=== PATIENT | male | born 1945 | race Hispanic/Latino ===

== ENCOUNTER 2017-10-22 20:48 | Emergency (ER) | payer MEDICARE, OTHER ==
[2017-10-22] MEDS ORDERED: ADRENALIN ONE (21:04)
[2017-10-22] MEDS ORDERED: SODIUM BICARBONATE IV ONE (21:04)
--- NOTE | 2017-10-22 21:15 | Emergency Department Report ---
ED CPR HPI - General Stated Complaint: CARDIAC ARREST Time Seen by Provider: 10/22/17 20:48 Source: EMS Mode of arrival: Stretcher Limitations: Altered Mental Status, Physical Limitation - History of Present Illness MD Complaint: found unresponsive -: unknown Place: home Bystander CPR Performed: No AED Applied by Bystander/Fur Coat Sewer: No Shock Advised: No Initial Findings in the Field: unresponsive, no respirations, no pulse, VTACH/ VFIB ROSC in the Field: No Associated Injuries: No Treatments Prior to Arrival: intubation, defribrillated shocks #, epinephrine mgs #, amiodarone ED Review of Systems ROS: Stated complaint: CARDIAC ARREST Other details as noted in HPI Comment: Unobtainable due to pts medical conditions ED Past Medical Hx - Past Medical History Previous Medical History?: No - Surgical History Past Surgical History?: No - Family History Family history: no significant - Social History Smoking Status: Unknown if ever smoked Substance Use Type: Other ED Physical Exam - General Limitations: Altered Mental Status, Physical Limitation - Head Head exam: Present: atraumatic, normocephalic - Eye Eye exam: Present: other (pupils fixed) - Respiratory Respiratory exam: Present: other (no lung sounds noted. Air heard over epigastrium. Patient immediately extubated and reintubated. See procedure note ) - Cardiovascular Cardiovascular Exam: Present: other (asystole, no pulse) - GI/Abdominal GI/Abdominal exam: Present: distended - Skin Skin exam: Present: dry, intact ED Course Vital Signs 10/22/17 20:54 Pulse Rate 0 L - Reevaluation(s) Reevaluation #1: Patient arrived via EMS. Report received from EMS. Patient received epi and amiodarone. Patient was found to be in V. fib and shocked delivered. On arrival patient is asystole and no pulse. CPR was continued patient was extubated due to to being in the stomach. Patient was immediately reintubated see procedure note. CPR continued and code ran in accordance with ACLS guidelines. See code note. time of 210610/22/17 20:40 Reevaluation #2: Discussed with family. Family support given. All questions answered for family. 10/22/17 21:50 - Intubation Time Out Performed: Yes Sedative: none Laryngoscope: fiberoptic video scope Size: 4 ET Tube Size: 7.5 Tube Secured Depth (cm): 22 Tube Secured Location: teeth Tube Placement Confirmation: visualized tube passing t, equal breath sounds bilat, no breath sounds over epi, confirmation by capnometr Patient Tolerated Procedure: no complications Intubation Complications: none ED Medical Decision Making - Medical Decision Making She is a 72-year-old male that presents emergency room for cardiac and respiratory arrest. Patient was unable to be resuscitated. Patient was pronounced in the ER. Code ran according to ACLS guidelines. Patient was reintubated in the ER and placement was verified as per procedure note. see code note for code details - Differential Diagnosis cardiac arrest. resp arrest. Critical Care Time: Yes Critical care attestation.: If time is entered above; I have spent that time in minutes in the direct care of this critically ill patient, excluding procedure time. Critical Care Time: 25 minutes spent for cc time. ED Disposition Clinical Impression: Cardiac arrest, Respiratory arrest Disposition: DC-20 Is pt being admited?: No Does the pt Need Aspirin: No Condition: Undetermined Time of Disposition: 21:10
== END 2017-10-23 01:00 ==
LOC: ED 20:48
DX: I46.9 Cardiac arrest, cause unspecified (principal)
CPT/HCPCS: 31500; 92950; 99285; J0171